=== PATIENT | male | born 1955 ===

== ENCOUNTER 2024-04-23 10:06 | Outpatient (CLI) | payer OTHER ==
[2024-04-23 12:16] LABS: HEMATOCRIT 40.3 % (39.0-48.0); HEMOGLOBIN 14.3 g/dL (13-16.00); MEAN CELL VOLUME 92.7 fL (80.0-100.00); MEAN CORPUSCULAR HEMOGLOBIN 32.8 pg (27.00-32.0); MEAN CORPUSCULAR HGB CONC 35.4 g/dl (32.0-36.0); PLATELET COUNT 216 K/uL (150-450); RED BLOOD COUNT 4.35 M/uL (4.00-6.00); RED CELL DISTRIBUTION WIDTH 14.5 % (11.5-14.5)
[2024-04-23 12:25] LABS: URINE APPEARANCE Clear; URINE BILIRRUBIN Negative (NEGATIVE); URINE BLOOD Negative; URINE COLOR Yellow; URINE GLUCOSE Negative (NEGATIVE); URINE KETONE Negative (NEGATIVE); URINE LEUKOCYTE Negative; URINE NITRATE Negative; URINE PROTEIN Negative (NEGATIVE); URINE UROBILINOGEN 0.2 E.U./dl
[2024-04-23 12:26] LABS: URINE RBC 3.2 uL (0.0-20.8)
[2024-04-23 12:30] LABS: URINE BACTERIA 2.4 uL (0.0-1933); URINE WBC 0.4 uL (0.0-23.2)
[2024-04-23 12:37] LABS: INR 1.06; PARTIAL THROMBOPLASTIN TIME 26.5 SECONDS (22.0-34.0); PROTHROMBIN TIME 11.5 SECONDS (9.0-11.5)
[2024-04-23 13:09] LABS: CALCIUM 9.5 mg/dL (8.5-10.1); CREATININE SERUM 1.14 mg/dL (0.70-1.30); GFR 63.5; POTASSIUM 4.62 mEq/L (3.5-5.1)
== END 2024-04-23 12:18 | disposition home or self-care (01) ==
LOC: RAD 10:06
PROVIDERS: ATTEND Internal Medicine
DX: I11.9 Hypertensive heart disease without heart failure (principal); Z01.818 Encounter for other preprocedural examination; N39.0 Urinary tract infection, site not specified; D68.9 Coagulation defect, unspecified; E11.65 Type 2 diabetes mellitus with hyperglycemia